=== PATIENT | female | born 1985 | race Caucasian/White ===

== ENCOUNTER → 2023-11-17 08:33 | Outpatient (REF) | payer OTHER, SELFPAY | LOC: MRI 3T 08:33 | PROVIDERS: ATTENDING PHYSICIAN Surgery; FAMILY PHYSICIAN Nurse Practitioner | DX: R92.2 Inconclusive mammogram (principal); Z80.3 Family history of malignant neoplasm of breast; Z91.89 Other specified personal risk factors, not elsewhere classified | CPT/HCPCS: 77049; A9585 ==

== ENCOUNTER → 2024-01-01 09:53 | Outpatient (REF) | payer OTHER, SELFPAY | LOC: HWRAD 09:53 | PROVIDERS: ATTENDING PHYSICIAN Nurse Practitioner | DX: E01.0 Iodine-deficiency related diffuse (endemic) goiter (principal) | CPT/HCPCS: 76536 ==

== ENCOUNTER → 2024-04-16 14:32 | Outpatient (REF) | payer OTHER, SELFPAY | LOC: HWWDC 14:32 | PROVIDERS: ATTENDING PHYSICIAN Surgery; FAMILY PHYSICIAN Internal Medicine | DX: Z12.31 Encounter for screening mammogram for malignant neoplasm of breast (principal) | CPT/HCPCS: 77063; 77067 ==

== ENCOUNTER → 2024-07-16 11:33 | Outpatient (REF) | payer OTHER, SELFPAY | LOC: HWRAD 11:33 | PROVIDERS: ATTENDING PHYSICIAN Nurse Practitioner Adult Health | DX: R68.89 Other general symptoms and signs (principal); R07.89 Other chest pain | CPT/HCPCS: 71046 ==

== ENCOUNTER 2024-09-30 06:19 | Day surgery (SDC) | payer OTHER, SELFPAY | END 2024-09-30 08:58 | disposition home or self-care (01) | LOC: GI 06:19 | PROVIDERS: ATTENDING PHYSICIAN Internal Medicine Gastroenterology; FAMILY PHYSICIAN Nurse Practitioner Adult Health | DX: K50.00 Crohn's disease of small intestine without complications (principal); K63.3 Ulcer of intestine; K52.89 Other specified noninfective gastroenteritis and colitis; K63.89 Other specified diseases of intestine | CPT/HCPCS: 45380; 88305 ==

== ENCOUNTER → 2025-04-18 07:57 | Outpatient (REF) | payer OTHER, SELFPAY | LOC: HWWDC 07:57 | PROVIDERS: ATTENDING PHYSICIAN Nurse Practitioner Adult Health; FAMILY PHYSICIAN Nurse Practitioner Adult Health; REFERRING PHYSICIAN Surgery | DX: Z12.31 Encounter for screening mammogram for malignant neoplasm of breast (principal) | CPT/HCPCS: 77063; 77067 ==